=== PATIENT | male | born 1945 | race Caucasian/White ===

== ENCOUNTER 2017-04-03 12:32 | Outpatient (CLI) | payer MEDICARE, BC | END 2017-04-03 12:33 | disposition home or self-care (01) | DX: I10 Essential (primary) hypertension (principal) ==

== ENCOUNTER 2017-05-08 07:50 | Outpatient (CLI) | payer MEDICARE, BC ==
[2017-05-08 12:48] LABS: CHOL/HDL RATIO 2.8 (<5.0); CHOLESTEROL 179 mg/dL; HDL CHOLESTEROL 64 mg/dL; LDL/HDL RATIO 1.5 (<3.6); TRIGLYCERIDES 80 mg/dL; VLDL CHOLESTEROL 16 mg/dL
== END 2017-05-08 07:51 | disposition home or self-care (01) ==
LOC: LAB.WCP 07:50
PROVIDERS: ATTEND Family Medicine
DX: E78.5 Hyperlipidemia, unspecified (principal)
CPT/HCPCS: 36415; 80061

== ENCOUNTER 2017-11-24 07:39 | Outpatient (CLI) | payer MEDICARE, BC ==
[2017-11-24 14:01] LABS: BUN - BLOOD UREA NITROGEN 17 mg/dL (6-20); CALCIUM 8.5 mg/dL (8.5-10.3); CARBON DIOXIDE - CO2 23 mmol/L (21-32); CHLORIDE 108 mmol/L (101-111); CHOL/HDL RATIO 2.5 (<5.0); CHOLESTEROL 163 mg/dL; CREATININE 0.9 mg/dL (0.6-1.2); GFR - MDRD 83 (>89); GLUCOSE 93 mg/dL (70-100); HDL CHOLESTEROL 65 mg/dL; LDL CHOLESTEROL,CALCULATED 82 mg/dL; LDL/HDL RATIO 1.3 (<3.6); SODIUM 137 mmol/L (135-145); VLDL CHOLESTEROL 16 mg/dL
== END 2017-11-24 07:40 | disposition home or self-care (01) ==
LOC: LAB.WCP 07:39
PROVIDERS: ATTEND Family Medicine
DX: I10 Essential (primary) hypertension (principal); E78.5 Hyperlipidemia, unspecified
CPT/HCPCS: 36415; 80048; 80061; 83721

== ENCOUNTER 2017-12-03 09:00 | Outpatient (CLI) | payer MEDICARE, BC ==
[2017-12-03] MEDS ORDERED: REGADENOSON 0.4 MG/5 ML SYRINGE IVP ONE ×2 (11:37→15:39)
--- NOTE | 2017-12-03 14:21 | CARDIAC PROCEDURE NOTE ---
DATE OF SERVICE: 12/03/2017 Physician: MARIAELENA Maria PRIMARY CARE PHYSICIAN: Dr. Hodge PROCEDURE: Pharmacologic stress test. PROCEDURE SYMPTOMS: Atypical chest pain. CARDIAC RISK FACTORS: Include hypertension, hyperlipidemia, and former smoker. PREVIOUS CARDIAC PROCEDURES: None. CLINICAL HISTORY: A 72-year-old male without known coronary artery disease. No current symptoms. No medications held. INITIAL RESTING VITAL SIGNS: BP 146/82, heart rate 50, height 67 inches, weight 198 pounds, BMI 31.0. PROCEDURE AND FINDINGS: Patient identity and date verified. Consent signed. Pharmaceutical check. Pharmacologic stress testing was performed with Lexiscan at a dose of 0.4 mg over 10 seconds. The heart rate increased to 115 beats per minute from the infusion. Blood pressure response was normal during the stress procedure. The patient developed infusion related symptoms, which included mild shortness of air and resolved spontaneously. The resting ECG demonstrated normal sinus rhythm. Maximum ST segment depression with stress was 0; however, following the infusion, T wave inversions occurred in leads V4 through V6. There was no ectopy. FINAL IMPRESSION 1. Nondiagnostic electrocardiogram for ischemia in the setting of vasodilator stress with inverted T waves occurring in leads V4 through V6. 2. Nondiagnostic stress test for angina. 3. No ectopy. 4. Await myocardial perfusion report. TD: 12/03/2017 14:20
--- NOTE | 2017-12-03 17:05 | Nuclear Medicine Report ---
EXAM: NUCLEAR MEDICINE MYOCARDIAL PERFUSION STRESS AND REST EXAM DATE: 12/03/2017 03:51 PM. CLINICAL HISTORY: Chest pain. COMPARISON: None. TECHNIQUE: Patient given 10 mCi technetium 99m sestamibi IV for the rest portion of the study. Non-ga sandra cardiac SPECT scintigraphy performed with multiplanar reformats. After an appropriate delay, patient given 0.4 mg Lexiscan for pharmacologic stress. After this, patie nt given 43.3 mCi technetium 99m sestamibi IV. Cardiac gated SPECT scintigraphy performed with multip lanar reformats, wall motion analysis, and left ventricular ejection fraction estimation. FINDINGS: Small focus of [id number] decreased uptake in the apex, fixed on stress and rest. Otherwise, uniform uptake in the left ventricle myocardium on stress and rest. Wall motion is uniform. Left ventricular ejection fraction estimated at 72%. IMPRESSION: 1. Small focus of apical thinning or old apical infarct. 2. No scintigraphic evidence of inducible ischemia. 3. Left ventricular ejection fraction estimated at 72%. [facility] Referring Provider Line: [phone] SITE ID: [id number]
[2017-12-03 17:16] VITALS: BP 146/82
== END 2017-12-03 09:01 | disposition home or self-care (01) ==
LOC: DI 09:00
PROVIDERS: ATTEND Family Medicine
DX: R07.89 Other chest pain (principal); I77.810 Thoracic aortic ectasia; I10 Essential (primary) hypertension; E78.5 Hyperlipidemia, unspecified; Z87.891 Personal history of nicotine dependence
CPT/HCPCS: 78452; 93017; 93306; A9500; J2785

== ENCOUNTER 2018-11-11 08:30 | Outpatient (CLI) | payer MEDICARE, BC ==
[2018-11-11 13:14] LABS: BASOPHILS # (AUTO) 0.1 10^3/uL (0.0-0.1); BASOPHILS % (AUTO) 1.7 %; EOSINOPHILS # (AUTO) 0.2 10^3/uL (0.0-0.7); HGB - HEMOGLOBIN 16.4 g/dL (14.0-18.0); LYMPHOCYTES # (AUTO) 2.7 10^3/uL (1.5-3.5); LYMPHOCYTES % (AUTO) 34.9 %; MEAN CORPUSCULAR HEMOGLOBIN 30.9 pg (27.0-31.0); MEAN CORPUSCULAR HGB CONC 34.5 g/dL (32.0-36.0); MEAN CORPUSCULAR VOLUME 89.6 fL (80.0-94.0); MEAN PLATELET VOLUME 7.2 fL (7.4-11.4); MONOCYTES # (AUTO) 0.8 10^3/uL (0.0-1.0); MONOCYTES % (AUTO) 10.7 %; NEUTROPHILS # (AUTO) 3.9 10^3/uL (1.5-6.6); NEUTROPHILS % (AUTO) 50.7 %; PLT - PLATELET COUNT 238 10^3/uL (130-450); RED BLOOD COUNT 5.32 10^6/uL (4.70-6.10); WHITE BLOOD COUNT 7.7 x10^3/uL (4.8-10.8)
[2018-11-11 14:03] LABS: ALBUMIN 4.3 g/dL (3.2-5.5); ALBUMIN/GLOBULIN RATIO 1.1 (1.0-2.2); ALKALINE PHOSPHATASE 74 IU/L (42-121); ALT ALANINE AMINOTRANSFERASE 23 IU/L (10-60); AST ASPARTATE AMINOTRANSFERASE 28 IU/L (10-42); BILIRUBIN,TOTAL 0.8 mg/dL (0.2-1.0); BUN - BLOOD UREA NITROGEN 11 mg/dL (6-20); CALCIUM 9.1 mg/dL (8.5-10.3); CARBON DIOXIDE - CO2 27 mmol/L (21-32); CHLORIDE 103 mmol/L (101-111); CHOL/HDL RATIO 2.3 (<5.0); CHOLESTEROL 169 mg/dL; CREATININE 0.9 mg/dL (0.6-1.2); GFR - MDRD 83 (>89); GLUCOSE 94 mg/dL (70-100); HDL CHOLESTEROL 72 mg/dL; LDL CHOLESTEROL,CALCULATED 79 mg/dL; LDL/HDL RATIO 1.1 (<3.6); SODIUM 136 mmol/L (135-145); TOTAL PROTEIN 8.1 g/dL (6.7-8.2); VLDL CHOLESTEROL 18 mg/dL
== END 2018-11-11 08:31 | disposition home or self-care (01) ==
LOC: LAB.WCP 08:30
PROVIDERS: ATTEND Physician Assistant
DX: I10 Essential (primary) hypertension (principal); E78.5 Hyperlipidemia, unspecified
CPT/HCPCS: 36415; 80053; 80061; 83721; 85025

== ENCOUNTER 2019-03-22 07:45 | Outpatient (CLI) | payer MEDICARE, BC ==
[2019-03-22 12:41] LABS: BASOPHILS # (AUTO) 0.1 10^3/uL (0.0-0.1); BASOPHILS % (AUTO) 0.9 %; EOSINOPHILS # (AUTO) 0.1 10^3/uL (0.0-0.7); EOSINOPHILS % (AUTO) 1.2 %; HGB - HEMOGLOBIN 15.7 g/dL (14.0-18.0); LYMPHOCYTES # (AUTO) 1.9 10^3/uL (1.5-3.5); LYMPHOCYTES % (AUTO) 27.9 %; MEAN CORPUSCULAR HEMOGLOBIN 29.1 pg (27.0-31.0); MEAN CORPUSCULAR HGB CONC 30.9 g/dL (32.0-36.0); MEAN CORPUSCULAR VOLUME 94.2 fL (80.0-94.0); MEAN PLATELET VOLUME 9.1 fL (7.4-11.4); MONOCYTES # (AUTO) 0.9 10^3/uL (0.0-1.0); MONOCYTES % (AUTO) 13.7 %; NEUTROPHILS # (AUTO) 3.7 10^3/uL (1.5-6.6); PLT - PLATELET COUNT 236 10^3/uL (130-450); RED BLOOD COUNT 5.39 10^6/uL (4.70-6.10); RED CELL DISTRIBUTION WIDTH 13.5 % (12.0-15.0); WHITE BLOOD COUNT 6.6 x10^3/uL (4.8-10.8)
[2019-03-22 12:59] LABS: ALBUMIN 4.2 g/dL (3.2-5.5); ALBUMIN/GLOBULIN RATIO 1.1 (1.0-2.2); ALKALINE PHOSPHATASE 59 IU/L (42-121); ALT ALANINE AMINOTRANSFERASE 21 IU/L (10-60); AST ASPARTATE AMINOTRANSFERASE 32 IU/L (10-42); BILIRUBIN,TOTAL 0.6 mg/dL (0.2-1.0); BUN - BLOOD UREA NITROGEN 14 mg/dL (6-20); CARBON DIOXIDE - CO2 25 mmol/L (21-32); CHLORIDE 104 mmol/L (101-111); CHOL/HDL RATIO 2.6 (<5.0); CHOLESTEROL 171 mg/dL; CREATININE 0.9 mg/dL (0.6-1.2); GFR - MDRD 83 (>89); GLUCOSE 94 mg/dL (70-100); HDL CHOLESTEROL 67 mg/dL; LDL CHOLESTEROL,CALCULATED 88 mg/dL; LDL/HDL RATIO 1.3 (<3.6); SODIUM 137 mmol/L (135-145); TOTAL PROTEIN 7.9 g/dL (6.7-8.2); VLDL CHOLESTEROL 16 mg/dL
== END 2019-03-22 07:46 | disposition home or self-care (01) ==
LOC: LAB.WCP 07:45
PROVIDERS: ATTEND Family Medicine
DX: E78.5 Hyperlipidemia, unspecified (principal); I10 Essential (primary) hypertension
CPT/HCPCS: 36415; 80053; 80061; 83721; 85025

== ENCOUNTER 2019-04-29 08:00 | Outpatient (CLI) | payer MEDICARE, BC ==
--- NOTE | 2019-04-29 10:39 | XRAY Report ---
Reason: COPD STAGE 2 MODERATE Procedure Date: 04/29/2019 Accession Number: [id number] / [id number] Procedure: WCP - Chest 2 View X-Ray CPT Code: 89522 FULL RESULT: EXAM: CHEST RADIOGRAPHY EXAM DATE: 04/29/2019 08:52 AM. CLINICAL HISTORY: COPD STAGE 2 MODERATE. COMPARISON: NECK 02/01/2007 2:32 PM. TECHNIQUE: 2 views. FINDINGS: Lungs/Pleura: There is no evidence of lobar consolidation or effusion. There is reticular opacity within the right midlung. There is likely underlying emphysema. There is no pneumothorax. Mediastinum: Heart size is within normal limits. There is bilateral hilar convexity. Other: No acute bony abnormalities are seen. IMPRESSION: 1. Lungs are well expanded. 2. Heart size is normal. 3. There is right greater than left hilar convexity. This is probably enlarged pulmonary vasculature. As indicated, follow-up chest CT could be used to exclude hilar mass. 4. There is reticular opacity within the right lateral chest. This may represent scarring or atelectasis. A chest CT could also be used to evaluate this opacity and to exclude a right lateral lung mass. 5. No acute intrathoracic plain film abnormality. [facility]
== END 2019-04-29 23:59 | disposition home or self-care (01) ==
LOC: DI.WCP 08:00 → EDSTATUS 13:00 → DI.WCP 23:59
PROVIDERS: ATTEND Family Medicine
DX: J44.9 Chronic obstructive pulmonary disease, unspecified (principal); R91.8 Other nonspecific abnormal finding of lung field
CPT/HCPCS: 71046